=== PATIENT | female | born 1965 | race Caucasian/White ===

== ENCOUNTER 2016-09-01 08:00 | Outpatient (CLI) | payer OTHER | END 2016-09-01 08:01 | disposition home or self-care (01) | DX: K76.0 Fatty (change of) liver, not elsewhere classified (principal); R10.11 Right upper quadrant pain; K76.89 Other specified diseases of liver; R79.89 Other specified abnormal findings of blood chemistry ==

== ENCOUNTER 2016-10-23 12:19 | Outpatient (CLI) | payer OTHER | END 2016-10-23 12:20 | disposition home or self-care (01) | DX: R92.1 Mammographic calcification found on diagnostic imaging of breast (principal) ==

== ENCOUNTER 2017-03-09 08:19 | Outpatient (CLI) | payer OTHER ==
--- NOTE | 2017-03-09 12:28 | XRAY Report ---
THREE-VIEW RIGHT ELBOW: 03/09/2017 CLINICAL INDICATION: Pain. FINDINGS: AP, lateral, oblique views of the right elbow demonstrate no evidence of fracture or dislo cation. No effusion is present. The joint spaces are unremarkable. IMPRESSION: NORMAL RIGHT ELBOW. JOB #: [id number] EXT JOB #:[id number]
== END 2017-03-09 08:20 | disposition home or self-care (01) ==
LOC: DI 08:19
PROVIDERS: ATTEND Nurse Practitioner Family
DX: M25.521 Pain in right elbow (principal)

== ENCOUNTER 2017-05-18 10:15 | Outpatient (CLI) | payer OTHER ==
--- NOTE | 2017-05-18 12:10 | Mammography Report ---
DIGITAL DIAGNOSTIC BILATERAL MAMMOGRAM: 05/18/2017 CLINICAL INDICATION: Followup calcifications. TECHNIQUE: Bilateral CC and MLO views, right true lateral and spot magnification views. COMPARISON: 10/23/2016, 03/24/2016, 02/29/2016, 09/28/2014, 02/09/2012, 06/17/2010. FINDINGS: The breasts again demonstrate heterogeneously dense fibroglandular parenchyma bilaterally. The calcifications in question, in the right upper inner central breast, have increased in number, w ith increasing pleomorphism. The appearance is suspicious. Biopsy is recommended. The calcifications appear amenable to stereotactic sampling. IMPRESSION: SUSPICIOUS INCREASE IN PLEOMORPHISM AND CALCIFICATIONS IN THE RIGHT UPPER INNER CENTRAL BREAST. RECOMMENDATION: BIOPSY. THE CALCIFICATIONS APPEAR AMENABLE TO STEREOTACTIC SAMPLING. BIRADS CATEGORY 4-SUSPICIOUS ABNORMALITY. Results and recommendations discussed with the patient at the time of the examination, and called to the office of EDWARD Sifuentes, on 05/18/2017. Images will be forwarded to the breast center at [facility] for stereotactic biopsy planning. STANDARD QUALIFYING STATEMENTS 1. This examination was reviewed with the aid of Computer-Aided Detection (CAD). 2. A negative or benign imaging report should not delay biopsy if clinically suspicious findings are present. Consider surgical consultation if warranted. More than 5% of cancers are not identified by i maging. 3. Dense breasts may obscure an underlying neoplasm. JOB #: [id number] EXT JOB #:[id number]
== END 2017-05-18 10:16 | disposition home or self-care (01) ==
LOC: DI 10:15
PROVIDERS: ATTEND Nurse Practitioner Family
DX: R92.1 Mammographic calcification found on diagnostic imaging of breast (principal)
CPT/HCPCS: 77066

== ENCOUNTER 2018-06-16 07:28 | Day surgery (SDC) | payer OTHER ==
[2018-06-16] MEDS ORDERED: LACTATED RINGERS 1,000 ML IV ONE (07:48)
[2018-06-16] MEDS ORDERED: fentaNYL 250 MCG/5 ML VIAL IVP ONE (08:35)
[2018-06-16] MEDS ORDERED: MIDAZOLAM 2 MG/2 ML VIAL IVP ONE (08:35)
[2018-06-16 09:18] VITALS: BP 127/91
== END 2018-06-16 07:29 | disposition home or self-care (01) ==
LOC: SDS 07:28
PROVIDERS: ATTEND Internal Medicine
PROC: 0DJD8ZZ Inspection of Lower Intestinal Tract, Via Natural or Artificial Opening Endoscopic (ICD-10-PCS; principal; 2018-06-16 08:30)
DX: Z12.11 Encounter for screening for malignant neoplasm of colon (principal); K64.2 Third degree hemorrhoids; Z80.0 Family history of malignant neoplasm of digestive organs
CPT/HCPCS: 45378; J3010; J7120

== ENCOUNTER 2019-01-05 13:51 | Outpatient (CLI) | payer OTHER ==
--- NOTE | 2019-01-10 08:46 | Mammography Report ---
Reason: ROUTINE MAMMO Procedure Date: 01/05/2019 Accession Number: [id number] / [id number] Procedure: MESFIN - Screening Mammo w/Luis E CPT Code: FULL RESULT: EXAM: Screening Mammo w/Luis E DATE: 01/05/2019 3:15 PM CLINICAL HISTORY: Screening encounter. History of late childbearing. Family history of breast cancer in the maternal grandmother at the age of 75. TECHNIQUE: (B) - Bilateral CC and MLO views were obtained. COMPARISON: 05/18/2017 through 02/29/2016. PARENCHYMAL PATTERN: (D) - The breast(s) demonstrate(s) heterogeneously dense fibroglandular parenchyma. FINDINGS: Calcifications in the right upper inner breast with a nearby biopsy marker are again seen, biopsy proven fibroadenoma. There are no suspicious masses, calcifications, or areas of distortion. IMPRESSION: Benign findings. BI-RADS category 2. RECOMMENDATION: (ANNUAL) - Recommend routine annual screening mammography. BI-RADS CATEGORY: (2) - Benign Findings. STANDARD QUALIFYING STATEMENTS: 1. This examination was not reviewed with the aid of Computer-Aided Detection (CAD). 2. A negative or benign imaging report should not preclude biopsy if clinically suspicious findings are present. 3. Dense breasts may obscure an underlying neoplasm. 4. This examination was reviewed with the aid of 3D breast imaging (tomosynthesis).
== END 2019-01-05 13:52 | disposition home or self-care (01) ==
LOC: DI 13:51
DX: Z12.31 Encounter for screening mammogram for malignant neoplasm of breast (principal); Z80.3 Family history of malignant neoplasm of breast
CPT/HCPCS: 77063; 77067

== ENCOUNTER 2019-04-22 19:08 | Emergency (ER) | payer OTHER ==
[2019-04-22] MEDS ORDERED: NEOMYCIN/POLYMYX/HC OTIC DROPS LEFTEAR STA (20:24)
[2019-04-22] MEDS ORDERED: cephALEXin 250 MG CAPSULE PO STA (20:24)
--- NOTE | 2019-04-22 20:35 | ED Physician Documentation ---
PD HPI HEENT - Stated complaint Stated Complaint: LT EAR PRESSURE, STINGING, ITCHING, SWELLING - Chief complaint Chief Complaint: Heent - History obtained from History obtained from: Patient - History of Present Illness Timing - onset: Today Timing - details: Gradual onset Pain level now: 5 Location: Left ear Improves: Nothing Associated symptoms: Facial swelling. No: Fever Recently seen: No: Not recently seen - Additional information Additional information: patient says she has "long-standing issue with my ear canals"; specifically, she has intermittent ear canal pruritis. This has been more intense over past few days and thus she has been trying topical benadryl without improvement and yesterday she used what sounds like a [id number] OTC liquid intended for use in the ears. She says this caused left ear canal swelling and burning which has steadily progressed and now involves periauricular area and left side of face Review of Systems Constitutional: denies: Fever, Chills, Sweats Ears: reports: Ear pain. denies: Loss of hearing, Drainage/discharge, Tinnitus/ringing Nose: denies: Rhinorrhea / runny nose, Congestion, Sinus pressure / pain Throat: denies: Sore throat PD PAST MEDICAL HISTORY - Past Medical History Cardiovascular: Hypertension, High cholesterol Respiratory: Sleep apnea, CPAP use Endocrine/Autoimmune: Type 2 diabetes GI: Other : None HEENT: Chronic vision loss Psych: None Musculoskeletal: None Derm: None - Past Surgical History Past Surgical History: Yes General: Colonoscopy /CISO: section - Present Medications Home Medications: Ambulatory Orders Medication Instructions Recorded Confirmed Fexofenadine HCl [Kimberly Allergy] 180 mg PO DAILY 06/15/18 06/16/18 Losartan Potassium 50 mg PO DAILY 06/15/18 06/15/18 diphenhydrAMINE [Benadryl] 25 mg PO ONCE 06/15/18 06/16/18 metFORMIN [Glucophage] 500 mg PO BIDWM 06/15/18 06/15/18 Cephalexin [Keflex] 500 mg PO Q6H #27 capsule 04/22/19 - Allergies Allergies/Adverse Reactions: Allergies Allergy/AdvReac Type Severity Reaction Status Date / Time Sulfa (Sulfonamide Allergy Anaphylaxis Verified 04/22/19 19:11 Antibiotics) - Social History Does the pt smoke?: No Smoking Status: Never smoker Does the pt drink ETOH?: Yes Does the pt have substance abuse?: No - Immunizations Immunizations are current?: Yes - POLST Patient has POLST: No PD ED PE NORMAL - Vitals Vital signs reviewed: Yes - General General: Alert and oriented X 3, No acute distress, Well developed/nourished - HEENT HEENT: Moist mucous membranes, Other (no obvious facial swelling noted) PD ED PE EXPANDED - HEENT HEENT: Other (mild left ear erythema and flaking skin of pinna and auricle. the left external auditory canal is moderately erythematous with trace exudate and mild edema. Left TM is opaque with mild erythema) Results - Vitals Vitals: Vital Signs - 24 hr 04/22/19 04/22/19 19:11 20:39 Temperature 36.7 C 36.9 C Heart Rate 83 75 Respiratory 16 20 Rate Blood Pressure 150/96 H 159/96 H O2 Saturation 99 97 Oxygen O2 Source Room air PD MEDICAL DECISION MAKING - ED course Complexity details: considered differential, d/w patient Departure - Departure Disposition: 01 Home, Self Care Clinical Impression: Otitis media Qualifiers: Otitis media type: suppurative Chronicity: acute Laterality: left Recurrence: not specified as recurrent Spontaneous tympanic membrane rupture: without spontaneous rupture Qualified Code(s): H66.002 - Acute suppurative otitis media without spontaneous rupture of ear drum, left ear Otitis externa Qualifiers: Otitis externa type: swimmer's ear Chronicity: acute Laterality: left Qualified Code(s): H60.332 - Swimmer's ear, left ear Condition: Good Instructions: ED Otitis Media Acute Adult, ED Otitis Externa Follow-Up: Hafsa Duvall ARNP [Primary Care Provider] - Prescriptions: Cephalexin [Keflex] 500 mg PO Q6H #27 capsule Discharge Date/Time: 04/22/19 20:39
[2019-04-22 20:39] VITALS: BP 159/96
== END 2019-04-22 20:39 | disposition home or self-care (01) ==
LOC: ED 19:08
DX: H66.002 Acute suppurative otitis media without spontaneous rupture of ear drum, left ear (principal); H60.332 Swimmer's ear, left ear; I10 Essential (primary) hypertension; E11.9 Type 2 diabetes mellitus without complications; Z79.899 Other long term (current) drug therapy; Z79.84 Long term (current) use of oral hypoglycemic drugs
CPT/HCPCS: 99282; 99283; A9270

== ENCOUNTER 2019-11-05 08:53 | Outpatient (CLI) | payer OTHER ==
[2019-11-05] MEDS ORDERED: IOVERSOL 320 100 ML VIAL IVP ONE (09:21)
== END 2019-11-05 08:54 | disposition home or self-care (01) ==
LOC: DI 08:53
PROVIDERS: ATTEND Registered Nurse
DX: Z53.9 Procedure and treatment not carried out, unspecified reason (principal)

== ENCOUNTER 2019-11-15 08:52 | Outpatient (CLI) | payer OTHER ==
[2019-11-15 09:06] LABS: BASOPHILS # (AUTO) 0.1 10^3/uL (0.0-0.1); BASOPHILS % (AUTO) 0.8 %; EOSINOPHILS # (AUTO) 0.2 10^3/uL (0.0-0.7); EOSINOPHILS % (AUTO) 3.2 %; HGB - HEMOGLOBIN 14.6 g/dL (12.0-16.0); LYMPHOCYTES # (AUTO) 2.3 10^3/uL (1.5-3.5); LYMPHOCYTES % (AUTO) 37.5 %; MEAN CORPUSCULAR HEMOGLOBIN 30.5 pg (27.0-31.0); MEAN CORPUSCULAR HGB CONC 33.5 g/dL (32.0-36.0); MEAN PLATELET VOLUME 9.7 fL (7.9-10.8); MONOCYTES # (AUTO) 0.4 10^3/uL (0.0-1.0); NEUTROPHILS # (AUTO) 3.2 10^3/uL (1.5-6.6); NEUTROPHILS % (AUTO) 51.5 %; PLT - PLATELET COUNT 193 10^3/uL (130-450); RED BLOOD COUNT 4.79 10^6/uL (4.20-5.40); RED CELL DISTRIBUTION WIDTH 12.7 % (12.0-15.0); WHITE BLOOD COUNT 6.2 x10^3/uL (4.8-10.8)
[2019-11-15] MEDS ORDERED: IOVERSOL 320 100 ML VIAL IVP ONE ×2 (09:22→13:31)
[2019-11-15 09:25] LABS: % IRON SATURATION 18 % (20-50); ALBUMIN 4.3 g/dL (3.2-5.5); ALBUMIN/GLOBULIN RATIO 1.3 (1.0-2.2); ALKALINE PHOSPHATASE 62 IU/L (42-121); ALT ALANINE AMINOTRANSFERASE 88 IU/L (10-60); AST ASPARTATE AMINOTRANSFERASE 57 IU/L (10-42); BILIRUBIN,TOTAL 0.8 mg/dL (0.2-1.0); BUN - BLOOD UREA NITROGEN 17 mg/dL (6-20); CALCIUM 9.2 mg/dL (8.5-10.3); CARBON DIOXIDE - CO2 30 mmol/L (21-32); CHLORIDE 97 mmol/L (101-111); CHOL/HDL RATIO 5.2 (<4.4); CHOLESTEROL 228 mg/dL; CREATININE 0.8 mg/dL (0.4-1.0); GLUCOSE 111 mg/dL (70-100); HB2 TOTAL 15.5 g/dL; HDL CHOLESTEROL 44 mg/dL; HEMOGLOBIN A1C 0.63 g/dL; HEMOGLOBIN A1C % 5.9 % (4.6-6.2); IRON 63 ug/dL (28-170); LDL CHOLESTEROL,CALCULATED 142 mg/dL; LDL/HDL RATIO 3.2 (<4.4); SODIUM 138 mmol/L (135-145); TOTAL IRON BINDING CAPACITY 360 ug/dL (250-450); TOTAL PROTEIN 7.7 g/dL (6.7-8.2); TRANSFERRIN 257 mg/dL (192-382); VLDL CHOLESTEROL 42 mg/dL
[2019-11-15 09:43] LABS: FERRITIN 148.7 ng/mL (11.0-306.8)
[2019-11-15 09:47] LABS: FOLATE 19.16 ng/mL (5.90 - >24.8)
--- NOTE | 2019-11-15 17:54 | CT Report ---
Reason: PLEURITIC PAIN Procedure Date: 11/15/2019 Accession Number: [id number] / [id number] Procedure: CT - CHEST W CPT Code: Final Report FULL RESULT: EXAM: CT CHEST WITH CONTRAST EXAM DATE: 11/15/2019 09:45 AM. CLINICAL HISTORY: PLEURITIC PAIN. COMPARISONS: None. TECHNIQUE: Routine helical CT imaging was performed through the chest. IV contrast: 80 cc Optiray 320. Reconstructions: Coronal and sagittal. In accordance with CT protocol optimization, one or more of the following dose reduction techniques were utilized for this exam: automated exposure control, adjustment of mA and/or KV based on patient size, or use of iterative reconstructive technique. FINDINGS: Imaged neck: Unremarkable Central airways: Unremarkable Lung parenchyma: Calcified granuloma in the right lower lobe. There is a 3 mm pulmonary nodule left lower lobe. The lungs are otherwise unremarkable. Pleural effusion: None Pneumothorax: None Heart: Unremarkable Aorta: Unremarkable Pulmonary arteries: The main pulmonary artery is top normal in size. Adenopathy: None Imaged abdomen: Fatty liver. Sidewalls: Unremarkable Bones: No suspicious osseous lesions. IMPRESSION: 1. No findings to explain patient's symptoms. 2. There is a 3 mm pulmonology in the left lower lobe. Please see below for recommendations. 3. Fatty liver. RECOMMENDATIONS: Recommend follow-up of the described nodule(s) according to the following guidelines: Fleischner Society Recommendations 2017 RSNA 2017 Solid Nodules-Low Risk Patients: <6 mm (single or multiple) - No routine follow-up* Solid Nodules-High Risk Patients: <6 mm (single or multiple) -Optional CT at 12 months* *Nodules < 6mm do not require routine follow-up, but suspicious nodule morphology, upper lobe location, or both may warrant 12 month follow-up. RADIA
[2019-11-16 13:01] LABS: HEPATITIS C ANTIBODY NON-REACTIVE (NON-REACTIVE)
== END 2019-11-15 08:53 | disposition home or self-care (01) ==
LOC: LAB 08:52 → DI 08:53
PROVIDERS: ATTEND Registered Nurse
DX: R07.81 Pleurodynia (principal); R91.1 Solitary pulmonary nodule; K76.0 Fatty (change of) liver, not elsewhere classified; R73.03 Prediabetes; G25.81 Restless legs syndrome; Z11.59 Encounter for screening for other viral diseases
CPT/HCPCS: 36415; 71260; 80053; 80061; 82607; 82728; 82746; 83036; 83540; 84466; 85025; 86803; Q9967; 83721

== ENCOUNTER 2019-12-19 10:14 | Outpatient (CLI) | payer OTHER ==
[2019-12-19 11:28] VITALS: BP 130/84
--- NOTE | 2019-12-19 11:28 | SLEEP CARE CONSULTATION ---
Information from patient questionnaire entered by Lizbeth Contreras. I have reviewed and concur with the information entered by Lizbeth Contreras. This document represents the service I personally performed and the decisions made by me, Dora Bond, RN, MSN, [employer]. History of Present Illness Service Date and Time: 12/19/2019 1014 Reason for Visit: New patient, Previously diagnosed sleep apnea (mild AHI - 12.7 in 2013), sleep apnea on CPAP therapy ([facility]), Re-establish care, Other (patient has noted mold on gasket to humifier and hose connection - cleaned with Qtips and removed.) Chief Complaint: reports: Snoring, Other (replacement of current CPAP obtained in 2013) Duration of Symptoms: lifelong Usual bedtime: 10 pm Time it takes to fall asleep: 10-15 min Snores at night: Yes (horribly but not with CPAP) Observed to quit breathing while asleep: No Sleeps alone due to snoring: No Number of times waking at night: 1 Reasons for waking at night: reports: Bathroom Toss, Turn, or Twitch while sleeping: Yes (before sleep / due to RLS symptoms/ using magnesium, Vitamin B12, accupunct) Recalls having dreams: No Usually gets out of bed at: 4:30 am Feels refreshed in the morning: No (even with sufficient sleep / she works 12 hour shifts/usually 6 hours sleep) Morning headache: No Sleepy or fatigued during the day: Yes (fatigued not sleepy) Ever fallen asleep while driving: No Takes day naps: No Dreams during day naps: No Prior sleep studies: Yes (Polysomnography) Year and Where: 2012 - [facility] Sleep - Parasomnia Symptoms Ever been unable to move upon waking from sleep: No Walks in sleep: No Talks in sleep: No Ever acted out dreams in sleep: No Ever felt weak in the knees when startled or emotional: No Bothered by creepy, crawly, restless sensations in legs: Yes (mirapex made worse. gabapentin caused weight gain; clonezepam 1/2 tab 10xmo) Problems with memory or concentration: No CPAP Compliance Data - Data Reviewed with Patient Average duration of nightly device use: 6.95 Compliance rate %: 97.8 (180 days) Current pressure setting (cmH2O): 12 Humidity settin Average residual AHI: 2.3 Average large leak: 6 min 53 sec Subjective Patient concerns: reports: mask leak noise (mild on stomach or side / resolves with adjustment - Dreamwear FFM), nasal congestion (chronic - has a referral to see an ENT), dry mouth, nose, throat (mild if nasal congestion and mouth breating / uses Biotene / use nasal lavage HS). denies: aerophagia, mask discomfort, air blowing in eyes, condensation in mask/hose, epistaxis, other Observed to snore while using device: No Current pressure setting perceived as: comfortable (lost 10 pounds and plans on losing 30 more / ENT eval for nasal obstruction right) On therapy, patient: reports: sleeping better, awakening more refreshed, being more awake and alert during the day, more rested overall. denies: drowsiness while driving Initial [place] Sleepiness Scale score: 1 (in 2012) Current [place] Sleepiness Scale score: 0 Past Medical History Past Medical History: reports: Hypertension, Diabetes, Other (RLS) Social History The patient's occupation is a RN. Patient is and lives in [place]. Have you smoked in the past 12 months: No Alcohol use: Yes Alcohol amount and frequency: 1-2 drinks weekly Caffeine use: Yes Caffeine amount and frequency: 1-2 cups a day Family History Family history of sleep disordered breathing: No Allergies and Home Medications Known drug allergies: Yes (sulfa / seasonal allergies/ lactose intolerance) Home medication list reviewed: Yes Allergy and home medication list: Hydrochlorthiaze 12.5mg daily metformin ER 500mg bid loratadine 10mg prn daily clonezepam 0.5mg prn RLS gabapentin 300- 600mg prn bid Vitamin B complex daily triple magnesium complex daily HS garlic / lysine combo daily black pepper turmeric 1 capsule omega 3 1000mg daily Probiotic daily Review of Systems Weight gain over past 5 years: 5 Weight loss over past 5 years: 20 Cardiovascular: reports: high blood pressure. denies: palpitations, chest pain, irregular heart rate or pulse, leg or foot swelling, have to sleep sitting up, other Respiratory: denies: shortness of breath, wheeze, sputum production, chronic c ough, other Gastrointestinal: reports: diarrhea (from metformin). denies: heartburn, difficulty swallowing, nausea, vomitting, abdominal pain, other Urinary: denies: incontinence, frequency (occasional), urgency, impotence, other Neurological: reports: headaches. denies: seizure, head trauma, disorientation, speech dysfunction, gait or balance problems, fainting or unconsciousness, other Psychiatric: denies: Attention Deficit Hyperactivity, anxiety, depression, mood disorder, claustrophobia, other Ear/Nose/Throat: reports: nasal congestion, sinus problems, dry mouth/throat, injury to nose, tonsillectomy, wisdom teeth removed. denies: nose bleeds, hoarseness Endocrine: denies: thyroid disease, history of goiter, sluggishness, too hot or cold, excessive thirst, increased appetite, increased urination, unexplained weakness, other Musculoskeletal: reports: back pain (chronic ), muscle pain or cramping. denies: joint pain, neck pain, joint swelling, mobility problems, other Immunologic: reports: sneezing, allergies to food or environment. denies: rash, itching Physical Exam Blood Pressure: 130/84 Cuff size: long Heart Rate: 65 O2 Saturation: 98 Height: 5 ft 2 in Weight: 195 lb 6.4 oz (losrt 10 pounds in past 2 months ) Body Mass Index: 35.7 BMI Classification: Obese Neck circumference: 15.25 Nostrils: partially obstructed Mouth and throat: narrow oropharynx Soft palate: long Hard palate: normal Uvula: normal Uvula visualization: 25% Mallampati Class III Tongue: normal in size Tonsils: absent bilaterally Chin and jaw: normal size and position Heart: regular rate and rhythm Lungs: clear bilaterally Abdomen: soft Extremities: no edema or clubbing Impression and Plan 1. Obstructive Sleep Apnea-Hypopnea Syndrome, as previously diagnosed. Currently using CPAP at [id number] and has better sleep quality and is more rested overall with use. However, her CPAP is about 7 years old and had mold at gasket between the water chamber and hose. She notified [facility] and was not able to replace this part. She has been since deligent to keep clean with Qtips and vinegar. She needs an updated CPAP device which is easier to clean. After looking at the Respironics and REs [employer] devices, she would like the Dreamstation. It also has a better humidity system with heated hose which will help reduce oral dryness without condensation. A higher humidity setting will also assist reduction of nasal congestion. A prescription will be made. Since the patient has started to lose weight and plans on losing more weight, I discussed how significant weight loss can reduce apnea and CPAP pressure requirements. I will change her pressure range to [id number] to accomodate for future weight loss. Symptoms to report for further pressure adjustment discussed. Patient's apnea severity and rationale for treatment to reduce apnea, improve sleep quality and reduce cardiovascular and cerebrovascular events was reviewed. I also reviewed the benefit of consistent device use of CPAP for hypertension,diabetes. 2. Restless legs, that affect her ability to fall asleep about 10 times a month. She uses clonazepam as needed for symptom management. Evidently mirapex made symptoms worse and gabapentin caused significant weight gain. She is also using magnesium, Vitamin B 12 and accupuncture for symptom management. She states she has had her iron checked. If not fro a while I would suggest checking again. Symptoms can be present with a serum ferritin less than 50mcg - 75mcg/L. In addition, her chronic back pain could be contributing to her symptoms and may need to be re-evaluated. * * Update CPAP and Changeauto CPAP pressure to 10-12 cmH2O * Notify me if snoring with mask or feeling that the pressure is too much or too little * Continue to lose weight * Call this office if any problems using CPAP * Consider checking ferritin level again if not done recently as contributing cause of RLS Visit Type: In Office Time Spent with Patient (minutes): 45 Provider Statement: I spent 100% of the Face to Face Visit with the patient with greater than 50% spent counseling the patient and coordination of care.
== END 2019-12-19 10:15 | disposition home or self-care (01) ==
LOC: SC 10:14
PROVIDERS: ATTEND Nurse Practitioner Family
DX: G47.33 Obstructive sleep apnea (adult) (pediatric) (principal); G25.81 Restless legs syndrome; E66.9 Obesity, unspecified; Z68.35 Body mass index [BMI] 35.0-35.9, adult
CPT/HCPCS: 99204; 99212

== ENCOUNTER 2020-01-27 12:33 | Outpatient (CLI) | payer OTHER | END 2020-01-27 12:34 | disposition home or self-care (01) | LOC: COV 12:33 | PROVIDERS: ATTEND Family Medicine | DX: R19.7 Diarrhea, unspecified (principal); Z20.828 Contact with and (suspected) exposure to other viral communicable diseases ==

== ENCOUNTER 2021-01-25 08:22 | Outpatient (CLI) | payer OTHER ==
--- NOTE | 2021-01-25 09:47 | XRAY Report ---
PROCEDURE: Hip w/Pelvis 2-3V RT INDICATIONS: PAIN IN RIGHT HIP TECHNIQUE: AP pelvis with lateral view(s) of the right hip(s). COMPARISON: None. FINDINGS: Bones: No fractures or dislocations. Mild to moderate right hip joint osteoarthritic changes are se en. No evidence of avascular necrosis of femoral head. Pelvic ring appears intact. No suspicious bon y lesions. Soft tissues: The visualized bowel gas pattern is normal. No suspicious soft tissue calcifications. IMPRESSION: Mild to moderate right hip joint osteoarthritis. No hip fracture or dislocation. No evide nce of avascular necrosis. Reviewed by: Srinivasa Ojeda MD on 01/25/2021 9:45 AM PDT Approved by: Srinivasa Ojeda MD on 01/25/2021 9:45 AM PDT Station ID: [id number]
== END 2021-01-25 08:23 | disposition home or self-care (01) ==
LOC: DI.S 08:22
PROVIDERS: ATTEND Registered Nurse
DX: M16.11 Unilateral primary osteoarthritis, right hip (principal)

== ENCOUNTER 2021-02-04 09:58 | Outpatient (CLI) | payer OTHER ==
--- NOTE | 2021-02-05 16:05 | Mammography Report ---
BILATERAL DIGITAL SCREENING MAMMOGRAM 3D/2D: 02/04/2021 CLINICAL: Family history of breast cancer. Comparison is made to exams dated: 01/05/2019 mammogram, 05/18/2017 mammogram, 10/23/2016 mammogram, mammogram, and 09/28/2014 mammogram - [facility]. The tissue of both breasts is heterogeneously dense. This may lower the sensitivity of mammography. There are calcifications in the right breast with an associated biopsy clip. No significant masses, calcifications, or other findings are seen in either breast. There has been no significant interval change. IMPRESSION: BENIGN There is no mammographic evidence of malignancy. A 1 year screening mammogram is recommended. This exam was interpreted at Station ID: [id number]. NOTE: For mammograms, a report in lay terms will be sent to the patient. Approximately 15% of breast malignancies will not be visualized mammographically. In the management of a palpable breast mass, a negative mammogram must not discourage biopsy of a clinically suspicious lesion. Electronically Signed By: Hever Azevedo M.D. aty/:02/04/2021 11:41:00 ACR BI-RADS Category 2: Benign Finding(s) 3342F PARENCHYMAL PATTERN: (D) - The breast(s) demonstrate(s) heterogeneously dense fibroglandular emmanuel jones. BI-RADS CATEGORY: (2) - 2 RECOMMENDATION: (ANNUAL) - Recommend routine annual screening mammography. [id number] 1 year screening LATERALITY: (B)
== END 2021-02-04 09:59 | disposition home or self-care (01) ==
LOC: DI.S 09:58
DX: Z12.31 Encounter for screening mammogram for malignant neoplasm of breast (principal); Z80.3 Family history of malignant neoplasm of breast

== ENCOUNTER 2021-04-25 08:26 | Outpatient (CLI) | payer OTHER ==
--- NOTE | 2021-04-29 12:02 | CT Report ---
PROCEDURE: CHEST WO INDICATIONS: PULMONARY NODULE FOLLOWUP. TECHNIQUE: Noncontrast 1mm axial images were acquired from the pulmonary apices to the posterior costophrenic an gles. Axial 5 mm soft tissue kernel reconstructions were performed as well as 8 mm axial MIP and cor onal and sagittal 5 mm reformations. For radiation dose reduction, the following was used: automate d exposure control, adjustment of mA and/or kV according to patient size. COMPARISON: Report of CT chest with contrast, 11/15/2019. FINDINGS: Image quality: Excellent. Lungs and pleura: Small right lung nodules are present. Nodule 1: 3 mm; right lower lobe; series 4 image 165; Nodule 2: 2 mm; right upper lobe; series 4 image 90. Nodule 3: 2 mmleft; right lower lobe; series 4 image 210. The 3 mm right lower lobe nodule described in the report of the last CT is not visualized. No acute air space opacities. No pleural effusions or pneumothorax. Central and peripheral airways are patent and normal in caliber. Mediastinum: Heart size is normal. No pericardial effusion. No mediastinal adenopathy by size crit eria. Thoracic aorta and central pulmonary arteries are normal in size. Esophagus is normal in marie noé. No hiatal hernia. Bones and chest wall: No suspicious bony lesions. No vertebral body compression fractures. No axil trevor or supraclavicular adenopathy by size criteria. The thyroid is normal in size and there are no incidental findings. Abdomen: There is hepatic steatosis. IMPRESSION: 1. Multiple small right lung nodules. Please see enclosed follow-up recommendation. 2. The 3 mm left lower lobe nodule described on the last exam is not visualized. Fleischner Society criteria for SOLID lung nodule followup. Nodule size (mm)Low-risk patientHigh-risk patient "d4No follow-up neededFollow-up at 12 mo; if no change, no further follow-up >9-2Xatxop-ey CT at 12 mo; if no change, no further follow-up needed.Initial follow-up CT at 6-12 mo, then 18-24 mo if no change. >6-8Initial follow-up CT at 6-12 mo, then 18-24 mo if no change. Initial follow-up CT at 3-6 mo, then 9-12 mo and 24 mo if no change. >8Follow-up CT at 3, 9, 24 mo. Or PET and/or biopsy.Same as for low-risk pts. Reviewed by: Ta García MD on 04/29/2021 12:01 PM PDT Approved by: Ta García MD on 04/29/2021 12:01 PM PDT Station ID: [id number]
== END 2021-04-25 08:27 | disposition home or self-care (01) ==
LOC: DI 08:26
PROVIDERS: ATTEND Registered Nurse
DX: R91.8 Other nonspecific abnormal finding of lung field (principal)

== ENCOUNTER 2021-11-02 10:05 | Outpatient (CLI) | payer OTHER ==
--- NOTE | 2021-11-04 10:32 | CT Report ---
PROCEDURE: CHEST WO INDICATIONS: PULMONARY NODULE TECHNIQUE: Noncontrast 1mm axial images were acquired from the pulmonary apices to the posterior costophrenic an gles. Axial 5 mm soft tissue kernel reconstructions were performed as well as 8 mm axial MIP and cor onal and sagittal 5 mm reformations. For radiation dose reduction, the following was used: automate d exposure control, adjustment of mA and/or kV according to patient size. COMPARISON: The chest without, 04/17/2021. FINDINGS: Image quality: Excellent. Lungs and pleura: There are multiple small nodules. Reference lesions are listed in following. Nodule 1: 2 mm; right upper lobe; series 4 image 84; unchanged in size. Nodule 2: 3 mm; right lower lobe; series 4 image 153; unchanged in size. Nodule 3: 2 mm; right lower lobe; series 4 image 199; unchanged in size. There is right hemidiaphragm elevation. No acute air space opacities. No pleural effusions or pneumo thorax. Central and peripheral airways are patent and normal in caliber. Mediastinum: Heart size is normal. No pericardial effusion. No mediastinal adenopathy by size crit eria. Thoracic aorta and central pulmonary arteries are normal in size. Esophagus is normal in marie noé. No hiatal hernia. Bones and chest wall: No suspicious bony lesions. No vertebral body compression fractures. No axil trevor or supraclavicular adenopathy by size criteria. The thyroid is normal in size and there are no incidental findings. Abdomen: Hepatomegaly and severe hepatic steatosis. Visualized upper abdominal solid organs and bowel loops appear normal in the absence of contrast. IMPRESSION: 1. Stable lung nodules. ACR lung RADS category 2. Recommend screening lung CT in 12 months if clinica lly indicated. 2. Hepatomegaly and severe hepatic steatosis. Fleischner Society criteria for SOLID lung nodule followup. Nodule size (mm)Low-risk patientHigh-risk patient "d4No follow-up neededFollow-up at 12 mo; if no change, no further follow-up >3-8Uehsit-pd CT at 12 mo; if no change, no further follow-up needed.Initial follow-up CT at 6-12 mo, then 18-24 mo if no change. >6-8Initial follow-up CT at 6-12 mo, then 18-24 mo if no change. Initial follow-up CT at 3-6 mo, then 9-12 mo and 24 mo if no change. >8Follow-up CT at 3, 9, 24 mo. Or PET and/or biopsy.Same as for low-risk pts. Reviewed by: Ta García MD on 11/04/2021 9:31 AM MILY Approved by: Ta García MD on 11/04/2021 9:31 AM MECHLOE Station ID: [id number]
== END 2021-11-02 10:06 | disposition home or self-care (01) ==
LOC: DI 10:05
PROVIDERS: ATTEND Registered Nurse
DX: R91.8 Other nonspecific abnormal finding of lung field (principal); K76.0 Fatty (change of) liver, not elsewhere classified

== ENCOUNTER 2023-03-03 10:04 | Outpatient (CLI) | payer OTHER ==
--- NOTE | 2023-03-03 10:01 | Sleep Patient Instructions ---
Sleep Center Visit Summary - Patient Visit Information Reason for Visit: INITIAL CONSULTATION - Patient Instructions Additional Instructions: You will continue with CPAP therapy with pressure changed to 13 cmH2O. A supply prescription will be updated with your DME. We encourage you to continue to try to lose weight. Please follow up with the sleep care office in 1 year. - Clinic Information Contact: [facility] [address] [place] [address] [email or web address] T: [phone]
--- NOTE | 2023-03-03 10:04 | SLEEP CARE CONSULTATION ---
Information from patient questionnaire entered by Joan Marti. I have reviewed and concur with the information entered by Joan Marti. This document represents the service I personally performed and the decisions made by me, Jane Dougherty ARNP. History of Present Illness Service Date and Time: 03/03/2023 0920 Reason for Visit: New patient, sleep apnea on CPAP therapy, Re-establish care Chief Complaint: reports: Snoring Date of Onset: 6MONTHS+ Usual bedtime: 9PM Time it takes to fall asleep: 1-1.5HRS Snores at night: Yes Observed to quit breathing while asleep: Yes Sleeps alone due to snoring: No Number of times waking at night: 1-2 Reasons for waking at night: reports: Bathroom Toss, Turn, or Twitch while sleeping: Yes Recalls having dreams: No Usually gets out of bed at: 430-7AM Feels refreshed in the morning: No Morning headache: No Sleepy or fatigued during the day: No Ever fallen asleep while driving: No Takes day naps: No Dreams during day naps: No Prior sleep studies: Yes (Polysomnography) Year and Where: 2012 - [facility] Additional HPI information: YSABEL BERG was previously diagnosed with sleep study dated 03/03/2013 here at [facility] to have mild, AHI 12.7, obstructive sleep apnea-hypopnea syndrome and comes in today to re-establish care for CPAP therapy. - Parasomnia Symptoms Ever been unable to move upon waking from sleep: No Walks in sleep: No Talks in sleep: No Ever acted out dreams in sleep: No Ever felt weak in the knees when startled or emotional: No Bothered by creepy, crawly, restless sensations in legs: Yes Problems with memory or concentration: No CPAP Compliance Data - Data Reviewed with Patient Average duration of nightly device use: 7 hours 22 minutes Compliance rate %: 100 (90/90 days used) Current pressure setting (cmH2O): 12 Average residual AHI: 3.7 Central apnea: 0 Obstructive apnea: 0.8 Hypopnea: 2.9 Average large leak: 7 mins 35 secs Compliance data discussion: She has a [employer] that has been replaced by [employer], is recertified. She is using [employer] for her supplies, sometimes [employer]. She is using a full face hybrid [employer] by [employer], medium wide cushion. Subjective Patient concerns: denies: aerophagia, mask discomfort, air blowing in eyes, mask leak noise, condensation in mask/hose, nasal congestion, dry mouth, nose, throat, epistaxis Observed to snore while using device: Yes (occasionally) Current pressure setting perceived as: comfortable On therapy, patient: reports: sleeping better, awakening more refreshed, being more awake and alert during the day, more rested overall. denies: drowsiness while driving Initial [place] Sleepiness Scale score: 1 (2012 INITIAL WAS 1, 1 03/03/2023) Past Medical History Past Medical History: reports: Hypertension, Diabetes, Depression Social History The patient's occupation is a RN. Patient is and lives in [place]. Have you smoked in the past 12 months: No Alcohol use: Yes Alcohol amount and frequency: 1 BEER -3X WEEK Caffeine use: Yes Caffeine amount and frequency: 1-2 DRINKS, daily Family History Family history of sleep disordered breathing: No (UNKNOWN) Allergies and Home Medications Known drug allergies: Yes (Sulfa) Drug allergies reviewed: Yes Home medication list reviewed: Yes (See updated list in EMR) Allergy and home medication list: Allergies Sulfa (Sulfonamide Antibiotics) Allergy (Verified 02/27/23 09:24) Anaphylaxis Review of Systems Weight gain over past 5 years: 10-15 Cardiovascular: reports: high blood pressure Gastrointestinal: denies: heartburn Neurological: denies: headaches Psychiatric: reports: depression Ear/Nose/Throat: reports: nasal congestion Musculoskeletal: reports: other (BROKEN FOOT) Immunologic: reports: allergies to food or environment Physical Exam Vital signs obtained and entered by: JOAN Rosado MA Blood Pressure: 138/82 (LEFT ARM) Cuff size: regular Heart Rate: 91 O2 Saturation: 98 Height: 5 ft 2 in Weight: 206 lb 12.8 oz Body Mass Index: 37.8 BMI Classification: Obese Neck circumference: 16.25 Heart: regular rate and rhythm Lungs: clear bilaterally Impression and Plan 1. Obstructive Sleep Apnea-Hypopnea Syndrome, mild, with good treatment compliance and good apnea control. On CPAP therapy, the patient has better sleep quality and is more rested overall. Patient states she does not sleep without her CPAP. She comes in mainly because her tells her that she is snoring occasionally. To resolve snore, the CPAP pressure will be changed to 13 cmH20. Patient advised to contact this office if pressure change uncomfortable or if pressure change does not resolve snore. Patient has significant improvement of their sleep apnea and is satisfied with current CPAP therapy. Patient denies problems with oral dryness, nasal congestion, epistaxis, skin irritation or aerophagia. Patient's apnea severity and rationale for treatment to reduce apnea, improve sleep quality and reduce cardiovascular and cerebrovascular events was reviewed. I also reviewed the benefit of consistent device use of CPAP for hypertension and depression/anxiety. 2. Obesity, unspecified. Currently patients BMI is 37.8. Obesity increases the risk of apnea, CPAP pressure requirements and overall health risks especially cardiovascular and diabetes. Thus patient is advised to lose weight. * Change auto CPAP pressure to 13 cmH2O * Notify me if snoring with mask or feeling that the pressure is too much or too little * Attempt to lose weight * Call this office if any problems using CPAP * Return for follow up in 1 year, or sooner if concerns arise Counseling Topics: Spare mask, Weight loss health impact Visit Type: In Office Time Spent with Patient (minutes): 34 Provider Statement: I spent 100% of the Face to Face Visit with the patient with greater than 50% spent counseling the patient and coordination of care.
[2023-03-03 10:31] VITALS: BP 138/82; O2SAT 98
== END 2023-03-03 10:05 | disposition home or self-care (01) ==
LOC: SC 10:04
PROVIDERS: ATTEND Nurse Practitioner Family
DX: G47.33 Obstructive sleep apnea (adult) (pediatric) (principal); E66.9 Obesity, unspecified; Z68.37 Body mass index [BMI] 37.0-37.9, adult
CPT/HCPCS: 99203; 99212

== ENCOUNTER 2023-03-09 08:18 | Outpatient (CLI) | payer OTHER ==
--- NOTE | 2023-03-09 16:42 | XRAY Report ---
PROCEDURE: Ankle 3 View LT INDICATIONS: LT ANKLE PAIN TECHNIQUE: 3 views of the ankle were acquired. COMPARISON: X-ray foot 12/03/2021 FINDINGS: Bones: No fractures or dislocations. Ankle mortise is normally aligned. No suspicious bony lesions . Soft tissues: No tibiotalar joint effusion. Achilles tendon appears normal. IMPRESSION: No visualized acute fracture or dislocation. However, occult injury cannot be excluded. Recommend raquel rt interval imaging follow-up in 7-10 days as clinically indicated for additional evaluation. Reviewed by: Simin Cullen MD on 03/09/2023 4:40 PM PDT Approved by: Simin Cullen MD on 03/09/2023 4:40 PM PDT Station ID: [id number]
== END 2023-03-09 08:19 | disposition home or self-care (01) ==
LOC: DI.S 08:18
PROVIDERS: ATTEND Podiatrist
DX: M25.572 Pain in left ankle and joints of left foot (principal)